=== PATIENT | male | born 1960 | race Caucasian/White ===

== ENCOUNTER 2022-01-12 12:40 | Day surgery (SDC) | payer BC ==
[2022-01-11 09:08] VITALS: BMI 30.7
[~2022-01-12 12:40] MED LIST: LACTATED RINGERS 1,000 ML IV SCH
[2022-01-12 13:10] VITALS: TEMP 97.6
[2022-01-12] MEDS ORDERED: PROPOFOL 10 MG/ML 20 ML VIAL IV ONE (13:26)
--- NOTE | 2022-01-12 13:44 | P.PCN ---
Date of Procedure: 01/12/22 Procedure(s) Performed: BRIEF HISTORY: Patient is a 61-year-old pleasant white male scheduled for an elective colonoscopy as a part of screening for colorectal neoplasia. PROCEDURE PERFORMED: Colonoscopy with snare polypectomy. PREOPERATIVE DIAGNOSIS: Screening for colon cancer. IV sedation per Anesthesia. PROCEDURE: After informed consent was obtained, the patient, was brought into the endoscopy unit. IV sedation was administered by Anesthesia under continuous monitoring. Digital rectal examination was normal. Initially the Olympus CF-160 flexible video colonoscope was then inserted in the rectum, gradually advanced into the cecum without any difficulty. Careful examination was performed as the scope was gradually being withdrawn. Ileocecal valve and the appendiceal orifice were visualized and appeared normal. Prep was excellent. Mucosa of the cecum, appeared normal. In the ascending colon there was a 5 mm sessile polyp removed by snare polypectomy. Rest of the ascending colon, transverse colon, descending colon, sigmoid colon, and rectum appeared normal. Retroflexion was performed in the rectum and no lesions were seen. The patient tolerated the procedure well. IMPRESSION: 5 mm ascending colon polyp status post polypectomy Rest of the colon appeared normal RECOMMENDATIONS: Findings of this examination were discussed with the patient as well as his family. He was advised to follow with the biopsy results. If the biopsy report adenoma he can have a repeat colonoscopy in 5 years..
[2022-01-12 13:49] VITALS: RESP 14
[2022-01-12 14:03] VITALS: BP 140/72; PULSE 67
== END 2022-01-12 14:15 | disposition home or self-care (01) ==
LOC: ORWHC2ENDO 12:40
PROVIDERS: ATTEND Internal Medicine Gastroenterology
DX: Z12.11 Encounter for screening for malignant neoplasm of colon (principal); Z85.828 Personal history of other malignant neoplasm of skin; Z79.899 Other long term (current) drug therapy; Z98.890 Other specified postprocedural states
CPT/HCPCS: 88305; 45385; J2704